=== PATIENT | female | born 1940 | race Caucasian/White ===

== ENCOUNTER 2016-11-28 18:14 | Inpatient (IN) | payer MEDICARE, SELFPAY ==
[~2016-11-28] VITALS: Ht 157.5 cm; Wt 87.9 kg
--- NOTE | ~2016-11-28 | EEP ---
Initial Pacemaker Generator Implant Report Demographics Patient Name SU AHUJA Gender Female Patient Number [id number] Race Visit Number [id number] Ethnicity Corporate ID Room Number 302 Accession Number [id number] Height 157.48 cm Date of 1940 Weight 83.46 kg Age 76 year(s) BSA 1.84 m Referring Physician Usman Yi MD BMI 33.65 kg/m Implanting Physician Usman Yi MD Date of Study 11/29/2016 Assisting Physician Performing Physician Usman Yi MD The procedure was explained in detail to the patient. Risks, complications and alternative treatments were reviewed. Written consent was obtained. Medications reviewed with patient prior to procedure. Conclusions Implantable Device Summary Summary 1. Successful Dual Chamber Pacemaker implantation. Recommendations 1. Ekg and chest X-ray should be performed immediately. 2. A wound check should be performed in 5- 7 days. Complications No complications. Procedure Procedure Type Pacemaker:Initial Insertion (generator and leads), Dual Lead PM Insert A&V Leads Indications Fatigue and Tobacco use-current. Procedure Description The patient was brought to the electrophysiology laboratory in a fasting state. A baseline ECG was recorded. Surface ECG leads, intracardiac electrograms, blood pressure measurements, and pulse oximety signals were monitored. A grounding pad was placed on the back. A defibrillator was configured to deliver shocks via self-adhesive anterior posterior defibrillator pads. Conscious sedation was administered. The upper chest area was prepped with ChloraPrep. After a three minute dry time the patient was draped in a sterile fashion. 2 % Lidocaine and Bupivacaine was used in the infraclavicular area and an incision was made. Blunt dissection down to the area of the Pectoralis Fascia was performed. Subclavian access was obtained and guidewires were placed into the SVC. 2 % Lidocaine with Bupivacaine was used inferiorly to the incision. Blunt dissection anterior to the Pectoralis Fascia was used to form the pacemaker pocket. Over one wire, an intravenous sheath and dilator were placed in the superior vena cava under fluoroscopic vision. Through the sheath, the ventricular lead was then placed into the right ventricular apex under fluoroscopic vision and tested. The sheath was removed. The lead was sutured to the Pectoralis fascia using non-absorbable suture. Over the other wire, an intravenous sheath and dilator were placed in to the superior vena cava under fluoroscopic vision. Through the sheath, the atrial lead was then placed in the right atrium under fluoroscopic vision and tested. The sheath was removed. The lead was sutured to the Pectoralis Fascia using non-absorbable sutures. The leads were then connected to the pulse generator and screwed tight. The pocket was irrigated with Normal Saline. The lead(s) and pulse generator were then placed into the pacemaker pocket. The incision was then closed. It was closed using 3-0 Vicryl for the deep and intermediate layer and 4-0 Vicryl for the subcuticular layer. A sterile dressing was applied. The patient tolerated the procedure well and was returned to the nursing unit in stable condition. Devices and Leads Leads + + +--------+ +------+ +---------+ !Identification!Action !Location!Lead name !Serial!Implant !Comments ! ! ! ! ! !# !date ! ! + + +--------+ +------+ +---------+ !New implant !Implanted !RV !PACER LEAD ![id number]!11/29/2016! ! ! ! !septum !INGEVITY ! ! ! ! ! ! ! !MRI 59 CM ! ! ! ! + + +--------+ +------+ +---------+ !New implant !Implanted !RA !PACER LEAD ![id number]!11/29/2016! ! ! ! !septal !INGEVITY ! ! ! ! ! ! ! !MRI 52 CM ! ! ! ! + + +--------+ +------+ +---------+ Leads Measured and Programmed Data +-------+---------+ +---------+ +---------+ + +------ -+ !Lead !Sensing Amplitude !Threshold (V) !Pulse Width (ms) !Impendence!Current! ! !(mV) ! ! !(Ohms) !(mA) ! +-------+---------+ +---------+ +---------+ + +------ -+ ! !Measured !Programmed !Measured !Programmed !Measured !Programmed ! ! ! +-------+---------+ +---------+ +---------+ + +------ -+ !RV ! !2.5 !0.4 !3.5 !0.5 !0.5 !1040 !0.4 ! !septum ! ! ! ! ! ! ! ! ! +-------+---------+ +---------+ +---------+ + +------ -+ !RA !1 !0.25 !1 !3.5 !0.5 !0.5 !599 !1.7 ! !septal ! ! ! ! ! ! ! ! ! +-------+---------+ +---------+ +---------+ + +------ -+ Device Programming Bradycardia Zone +-------+--------+--------+--------+ + +------+--------+ !Pacing !Mode !Lower !Upper !Paced AV !Sensed AV !PVARP !VRP (ms)! !Mode !Switch !Rate !Rate !Interval !Interval !(ms) ! ! ! ! !(ppm) !(ppm) !(ms) !(ms) ! ! ! +-------+--------+--------+--------+ + +------+--------+ !DDDR !On !60 !130 !210 !180 !320 !250 ! +-------+--------+--------+--------+ + +------+--------+ Medical History Allergies - Penicillin:. Admission Data Admission Date: 11/28/2016 Admission Time: 20:15 Insurance Payors:Medicare. Hospital Status:Inpatient. Procedure Data Procedure Date:11/29/2016Start:11:58 Fluoroscopy Time: 8:06 minutes.Fluoroscopy Dose: 337 mGy. Estimated blood loss:13 ml. Contrast Material - Isovue 370,10 ml. Procedure Medications Order and Administration + + +---------+--------+ !Time !Medication !Dosage !Route ! + + +---------+--------+ !11/29/2016 11:48 !Oxygen !2 l/min !NC ! + + +---------+--------+ 11/29/2016 11:55 !Versed !2 mg !I.V. ! + + +---------+--------+ !11/29/2016 11:55 !Fentanyl !50 mcg !I.V. ! + + +---------+--------+ !11/29/2016 11:56 !Sodium Chloride !40 ml !I.V. ! + + +---------+--------+ !11/29/2016 11:48 !Ancef !2 g !I.V. ! + + +---------+--------+ !11/29/2016 12:14 !Versed !1 mg !I.V. ! + + +---------+--------+ !11/29/2016 12:14 !Fentanyl !25 mcg !I.V. ! + + +---------+--------+ !11/29/2016 12:18 !Fentanyl !25 mcg !I.V. ! + + +---------+--------+ !11/29/2016 12:51 !Versed !1 mg !I.V. ! + + +---------+--------+ !11/29/2016 12:54 !Fentanyl !25 mcg !I.V. ! + + +---------+--------+ Discharge Data Discharge Date: 12/03/2016 Signatures
--- NOTE | ~2016-11-28 | ECH ---
Transthoracic Echocardiography Report (TTE) Demographics Patient Name LEIGHA BLUE Date of Study 11/29/2016 Patient Number [id number] Visit Number [id number] Date of 1940 Room Number 302 Accession Number [id number] Gender Female Age 76 year(s) Referring Usman Yi MD Cherry Sorter Lyla Orantes Physician RDCS Physician Interpreting Usman Yi MD Feltmaker And Weigher Physician Supervising Ordering Physician Usman Yi MD, MD/MLP Nurse Stress Uniform Force Captain Conclusions Summary Technically good exam. The estimated left ventricular ejection fraction is 60-65%. The left ventricle is moderately dilated . Mild concentric left ventricular hypertrophy. The left atrium is moderately dilated by LA volume index measurement. The interatrial septum appears aneurysmal. There is trivial aortic regurgitation by color Doppler. Mild-moderate mitral regurgitation by color Doppler. Mild tricuspid regurgitation by color Doppler. There is mild pulmonary hypertension. The pulmonary pressure (RVSP) is 39 mmHg. Procedure Type of Study TTE procedure:Echo Complete SF. Procedure Date Date: 11/29/2016 Start: 09:38 AM Technical Quality: Good visualization Indications:AV block complete and Near Syncope. Appropriate Use Criteria: 9 Height: 62 inches Weight: 184 pounds BSA: 1.84 m HR: 35 bpm BP: 143/73 mmHg Allergies - Penicillin. M-Mode/2D Measurements LV Diastolic Dimension: 5.94 cm LV Systolic Dimension: 4.07 cm LV Septum Diastolic: 0.96 cm LV PW Diastolic: 0.99 cm AO Root Dimension: 3.25 cm Cardiac Output: 3.31 l/min LA Dimension: 4.05 cm Cardiac Index: 1.8 l/min*m RV Diastolic Dimension: 3.85 cm LA volume index: 47 ml/m LVOT: 2.05 cm LVOT VTI: 28.69 cm RV Base: 3.4 cm LV Stroke volume: 94.65 ml RV Mid: 2.1 cm LV Stroke volume index: 51.44 ml/m TAPSE: 3.4 cm TDI-S': 20 cm/s Doppler Measurements AV Peak Velocity: 2 m/s MV Peak E-Wave: 1.58 m/s AV Peak Gradient: 16 mmHg AV Mean Gradient: 7.39 mmHg MV P1/2t: 58.4 msec LVOT Peak Velocity: 1.41 m/s AV Area (Continuity):2.51 cm MV Area (PHT): 3.77 cm TR Velocity:3.02 m/s PV Peak Velocity: 1.07 m/s TR Gradient:36.48 mmHg PV Peak Gradient: 4.57 mmHg Estimated RAP:3 mmHg Estimated PASP: 39.48 mmHg Estimated RVSP: 39 mmHg RA Area: 17.05 cm Findings Left Ventricle The left ventricle is moderately dilated . Mild concentric left ventricular hypertrophy. Diastolic function indeterminate due to patient's arrhythmia. Right Ventricle Normal right ventricle structure and function. Left Atrium The left atrium is moderately dilated by LA volume index measurement. The interatrial septum appears aneurysmal. Right Atrium Normal right atrial size. Mitral Valve Normal mitral valve structure and function. Mild-moderate mitral regurgitation by color Doppler. Aortic Valve Normal aortic valve structure and function. There is trivial aortic regurgitation by color Doppler. Tricuspid Valve Normal tricuspid valve structure and function. Mild tricuspid regurgitation by color Doppler. There is mild pulmonary hypertension. The pulmonary pressure (RVSP) is 39 mmHg. Pulmonic Valve Normal pulmonic valve structure and function. Mild pulmonic valve regurgitation by color Doppler. Pericardial Effusion No evidence of pericardial effusion. Miscellaneous Visualized portions of the aortic root and ascending aorta appear normal in size. Pleural Effusion No evidence of pleural effusion. Signature
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
[2016-12-04] MEDS ORDERED: APRESOLINE DPS100 MG PO (16:29)
[2016-12-04] MEDS ORDERED: CATAPRES-DPS0.1 MG PO (16:29)
[2016-12-04] MEDS ORDERED: CARVEDILOL25 MG PO (16:29)
[2016-12-04] MEDS ORDERED: ZESTRIL DPS40 MG PO (16:30)
[2016-12-04] MEDS ORDERED: NORVASC DPS10 MG PO (16:30)
[2016-12-04] MEDS ORDERED: SPIRONOLACT50 MG PO (16:30)
[2016-12-04] MEDS ORDERED: NICOTINE PATCH1 EAC1 TD (16:31)
[2016-12-04] MEDS ORDERED: ASPIRIN EC81 MG PO (16:31)
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
--- NOTE | 2017-01-04 14:57 | DS ---
ADMIT: 11/28/2016 RM/LOC: 302 [facility] MR#: [id number] [facility]#: [id number] [address] [facility] [address] [place], [place] [address] LEIGHA BLUE [address] [place] [address] General Discharge Summary SEX: F AGE: 76 : 1940 ADMISSION DATE: 11/28/2016 DISCHARGE DATE: 12/03/2016 FINAL DIAGNOSES: 1. Third-degree heart block. 2. Near syncope. 3. Acute delirium. 4. History of a stroke based on CT findings. 5. Hyponatremia. HOSPITAL COURSE: The patient admitted through the emergency room with near syncope and heart block. She did not have any history of coronary artery disease. She had reported not feeling well and being a little more fatigued in the past few days. Then, she had some mental status changes, and therefore, was brought into the emergency room. She did have an EKG, which showed third-degree heart block and was scheduled for a permanent pacemaker implantation. Her lab work was within normal limits. Medications were started for her hypertension. Her blood pressures continued to be greater than 200 systolic, and nitroglycerin drip was started along with her hydralazine and Norvasc, Ativan was also added. She had an echocardiogram, which showed a preserved ejection fraction, and therefore underwent a dual- chamber permanent pacemaker implantation on 11/29/2016, without any immediate complications. She remained on a nitroglycerin drip for blood pressure. Pace catheter was placed, and she was getting IV Lasix and also DuoNebs. She continued to have agitation and anxiety post-implant. Her blood pressure was elevated 180s over 90s. Nitroglycerin drip was at 55 mcg, Haldol was given, and she had a CT of the head ordered, Ativan was stopped, blood glucose was checked, and [facility] was consulted for primary care due to her confusion and medical management. Thiamine was given and the lab work was checked including a urine sodium, urine creatinine, and cortisol level. Fluid was given because of her acute delirium. Her CT did note an old stroke. The next day, metoprolol was added for her blood pressure and nitroglycerin drip was weaned. PT was ordered to evaluate and treat. She was feeling better that day. IV fluid resuscitation was continued. Sodium was improving. She was noted to be hyponatremic prior to that, it was thought this was all dehydration hypovolemia. The next day, her device check looked okay, she did have 6 seconds of atrial tachycardia. On 12/01/2016, her Lopressor was increased, Aldactone was added, her fluids were stopped, her sodium was better at 132, her delirium was clearing, 4-5 medication adjustments were made for her blood pressure. Her blood pressure was better, but was still elevated in systolics. Her hydralazine was increased also, along with her ASHLEY inhibitor, her amlodipine, and her beta-edie was changed. Clonidine was added. On 12/03/2016, she was felt stable for discharge. She did have resistant hypertension better than before. She had multiple medication changes over the last few days, and therefore, was decided to see the effect over the next couple weeks of these medication changes. Smoking cessation was discussed. She was scheduled to follow up with MOIRA Zuluaga, or Dr. Mary in 4 to 5 days for device check and blood pressure check. She is scheduled to follow up with Dr. Chavez in 6 weeks. ADMIT: 11/28/2016 RM/LOC: 302 [facility] MR#: [id number] [address] [place] [id number] LEIGHA BLUE MOCKING [place]IRNA [place] [address] General Discharge Summary SEX: F AGE: 76 : 1940 DISCHARGE MEDICATIONS: Include: 1. Hydralazine 100 mg p.o. daily. 2. Catapres 0.1 mg p.o. daily. 3. Coreg 25 mg p.o. b.i.d. 4. Norvasc 10 mg p.o. daily. 5. Spironolactone 50 mg p.o. daily. 6. Zestril 40 mg p.o. daily. 7. Habitrol 21 mg patch daily. 8. Aspirin 81 mg daily. She is scheduled for a BMP in 1 week. VITAL SIGNS ON DISCHARGE: Blood pressure of 128/52, O2 saturation of 93%, pulse of 63, respirations of 17, temp of 96.5. DISCHARGE DISPOSITION: To home. DISCHARGE CONDITION: Stable. PARISH Zuluaga / Oralia Mary MD / merrill JOB #: [id number] CC: Oralia Mary MD, Attending Physician Oralia Mary MD, Family Physician
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
[2017-01-13] MEDS ORDERED: MULTIPLE VITAM1 EAC1 PO (09:41)
[2017-01-13] MEDS ORDERED: GARLIC1 EAC1 PO (09:42)
[2017-01-13] MEDS ORDERED: [UNRECOGNIZED DRUG - OTHER] PO (09:42)
[2017-01-13] MEDS ORDERED: CO Q-1010 MG PO (09:42)
[2017-01-13] MEDS ORDERED: RESVERATROL50 MG PO (09:43)
== END 2016-12-03 11:00 | disposition home or self-care (01) | DRG 243 ==
LOC: ER 18:14 → 3ICU 20:15
PROVIDERS: ADMIT Internal Medicine
DX: I44.2 Atrioventricular block, complete (principal); E87.1 Hypo-osmolality and hyponatremia; E86.0 Dehydration; I10 Essential (primary) hypertension; I47.1 Supraventricular tachycardia; F17.210 Nicotine dependence, cigarettes, uncomplicated; R41.0 Disorientation, unspecified; S92.901D Unspecified fracture of right foot, subsequent encounter for fracture with routine healing; Z86.73 Personal history of transient ischemic attack (TIA), and cerebral infarction without residual deficits; Z82.49 Family history of ischemic heart disease and other diseases of the circulatory system

== ENCOUNTER → 2017-01-07 | Outpatient (CLI) | payer MEDICARE ==
[~2017-01-07] MED LIST: APRESOLINE DPS100 MG PO; ASPIRIN EC81 MG PO; CARVEDILOL25 MG PO; CATAPRES-DPS0.1 MG PO; CO Q-1010 MG PO; GARLIC1 EAC1 PO; MULTIPLE VITAM1 EAC1 PO; NICOTINE PATCH1 EAC1 TD; NORVASC DPS10 MG PO; RESVERATROL50 MG PO; SPIRONOLACT50 MG PO; ZESTRIL DPS40 MG PO; [UNRECOGNIZED DRUG - OTHER] PO
--- NOTE | ~2017-01-07 | EEP ---
Pacemaker Implant Report Demographics Patient Name SU AHUJA Gender Female Patient Number [id number] Race Visit Number [id number] Ethnicity Corporate ID Room Number Accession Number [id number] Height 157.48 cm Date of 1940 Weight 77 kg Age 76 year(s) BSA 1.78 m Referring Physician Karri PIZARRO BMI 31.05 kg/m Implanting Physician Usman Yi MD Date of Study 01/11/2017 Assisting Physician Performing Physician Usman Yi MD The procedure was explained in detail to the patient. Risks, complications and alternative treatments were reviewed. Written consent was obtained. Medications reviewed with patient prior to procedure. Conclusions Complications No complications. Procedure Procedure Type Pacemaker:Miscellaneous Pacemaker Leads Only:Insertion, Insert New Lead; Dual (2 Electrodes) , Repositioning/Removal, Removal of dual chamber leads Indications Pacer/lead mechanical complication. Procedure Description The patient was brought to the catheterization laboratory in a fasting state. A baseline ECG was recorded. Surface ECG leads, intracardiac electrograms, blood pressure measurements, and pulse oximetry signals were monitored. A grounding pad was placed on the back. A defibrillator was configured to deliver shocks via self-adhesive anterior posterior defibrillator pads. Conscious sedation was administered. The upper chest area was prepped with ChloraPrep. After a three minute dry time the patient was draped in a sterile fashion. 2 % Lidocaine with Epi was used in the infraclavicular area. The existing incision was then reopened. Blunt dissection down to the area of the Pectoralis Fascia was performed. The chronic lead(s) was disconnected from the pulse generator. The lead(s) were then repositioned and thresholds were obtained. The lead was sutured to the Pectoralis fascia using non-absorbable suture. The pocket was irrigated with Normal Saline. The lead(s) and pulse generator were then placed into the device pocket. The incision was then closed. It was closed using 2-0 Vicryl for the deep and intermediate layer and 4-0 Vicryl for the subcuticular layer. A sterile dressing was applied. The patient tolerated the procedure well and was returned to the nursing unit in stable condition. Devices and Leads Leads + + +--------+ +------+ +---------+ !Identification!Action !Location!Lead name !Serial!Implant !Comments ! ! ! ! ! !# !date ! ! + + +--------+ +------+ +---------+ !Old implant ! !RV !PACER LEAD ![id number]!11/29/2016! ! ! ! !septum !INGEVITY ! ! ! ! ! ! ! !MRI 59 CM ! ! ! ! + + +--------+ +------+ +---------+ !Old implant ! !RA !PACER LEAD ![id number]!11/29/2016! ! ! ! !septal !INGEVITY ! ! ! ! ! ! ! !MRI 52 CM ! ! ! ! + + +--------+ +------+ +---------+ !New implant !Implanted !RV !PACER LEAD ![id number]!01/11/2017! ! ! ! !septum !INGEVITY ! ! ! ! ! ! ! !MRI 59 CM ! ! ! ! + + +--------+ +------+ +---------+ Leads Measured and Programmed Data +-------+---------+ +---------+ +---------+ + +------ -+ !Lead !Sensing Amplitude !Threshold (V) !Pulse Width (ms) !Impendence!Current! ! !(mV) ! ! !(Ohms) !(mA) ! +-------+---------+ +---------+ +---------+ + +------ -+ ! !Measured !Programmed !Measured !Programmed !Measured !Programmed ! ! ! +-------+---------+ +---------+ +---------+ + +------ -+ !RV ! !2.5 !0.5 !3.5 !0.5 !0.5 !933 !0.6 ! !septum ! ! ! ! ! ! ! ! ! +-------+---------+ +---------+ +---------+ + +------ -+ Medical History Allergies - Penicillin:. - Penicillin:. Admission Data Admission Date: 01/07/2017 Admission Time: 11:18 Insurance Payors:Medicare. Hospital Status:Outpatient. Procedure Data Procedure Date:01/11/2017Start:12:37 Fluoroscopy Time: 5:18 minutes.Fluoroscopy Dose: 123 mGy. Estimated blood loss:10 ml. Contrast Material - Isovue 370,0 ml. Procedure Medications Order and Administration + + +---------+--------+ !Time !Medication !Dosage !Route ! + + +---------+--------+ 01/11/2017 12:57 !Ancef !2 g !I.V. ! + + +---------+--------01/11/2017 13:02 !Versed !2 mg !I.V. ! + + +---------+--------01/11/2017 13:03 !Fentanyl !50 mcg !I.V. ! + + +---------+--------+ !01/11/2017 13:03 !Sodium Chloride !30 ml !I.V. ! + + +---------+--------+ !01/11/2017 13:11 !Oxygen !2 l/min !NC ! + + +---------+--------+ !01/11/2017 13:13 !Versed !1 mg !I.V. ! + + +---------+--------+ !01/11/2017 13:13 !Fentanyl !25 mcg !I.V. ! + + +---------+--------+ !01/11/2017 13:20 !Versed !1 mg !I.V. ! + + +---------+--------+ !01/11/2017 13:20 !Fentanyl !25 mcg !I.V. ! + + +---------+--------+ !01/11/2017 13:24 !Oxygen !4 l/min !NC ! + + +---------+--------+ !01/11/2017 13:37 !Versed !1 mg !I.V. ! + + +---------+--------+ !01/11/2017 13:37 !Fentanyl !50 mcg !I.V. ! + + +---------+--------+ !01/11/2017 13:58 !Versed !1 mg !I.V. ! + + +---------+--------+ !01/11/2017 13:58 !Fentanyl !25 mcg !I.V. ! + + +---------+--------+ !01/11/2017 14:10 !Fentanyl !25 mcg !I.V. ! + + +---------+--------+ Approach - Incision site: Left infraclavicular.The subclavian vein (stick) was cannulated. Entry Locations - Percutaneous access was performed through the left subclavian vein. A 6 Fr sheath was inserted. Signatures
== END | disposition home or self-care (01) ==
LOC: RAD.S 11:18
DX: R06.02 Shortness of breath (principal); R55 Syncope and collapse

== ENCOUNTER 2017-01-11 10:56 | Observation (INO) | payer MEDICARE, SELFPAY ==
[~2017-01-11] VITALS: Ht 157.5 cm; Wt 76.5 kg
[~2017-01-11 10:56] MED LIST changes: -CO Q-1010 MG PO; -GARLIC1 EAC1 PO; -MULTIPLE VITAM1 EAC1 PO; -RESVERATROL50 MG PO; -[UNRECOGNIZED DRUG - OTHER] PO
[2017-01-13] MEDS ORDERED: MULTIPLE VITAM1 EAC1 PO (09:41)
[2017-01-13] MEDS ORDERED: GARLIC1 EAC1 PO (09:42)
[2017-01-13] MEDS ORDERED: CO Q-1010 MG PO (09:42)
[2017-01-13] MEDS ORDERED: [UNRECOGNIZED DRUG - OTHER] PO (09:42)
[2017-01-13] MEDS ORDERED: RESVERATROL50 MG PO (09:43)
--- NOTE | 2017-01-15 11:56 | HP ---
ADMIT: 01/11/2017 RM/LOC: [address] [facility] MR#: [id number] [address] [place] [id number] [place] [address] History and Physical SEX: F AGE: 76 : 1940 DATE OF SERVICE: CHIEF COMPLAINT: Near syncope. HISTORY OF PRESENT ILLNESS: Ms. Blue is a 76-year-old white female with a history of third-degree block and I implanted a permanent device in her in November 2016. She presented with some recurrent near syncope. Lead was found to be micro dislodged. Since the adjustment in December, she has not been experiencing any near syncope. She is denying any chest pain, pressure, tightness, fevers, chills, cough, or cold symptoms. She stopped her blood pressure medications all on her own and has noted that she is feeling much better. CURRENT MEDICATIONS: None. ALLERGIES: PENICILLIN. PAST MEDICAL HISTORY: Includes a foot fracture, third degree block, and hypertension. SOCIAL HISTORY: She is a former smoker. Senior Tax Manager. Familial history is reviewed and unchanged from November 2016. REVIEW OF SYSTEMS: A full 12-point review of systems was obtained and deemed to be negative except the pertinently dictated positive in HPI. PHYSICAL EXAMINATION: VITAL SIGNS: Her blood pressure is 170/90 with a pulse rate in the 70s. She is afebrile. GENERAL: She is a pleasant well-nourished well-developed white female, in no acute distress. Alert and oriented x3. NECK: Shows brisk carotid upstrokes. No JVD or bruit. CHEST: Clear. HEART: Regular. ADMIT: 01/11/2017 RM/LOC: [address] [facility] MR#: [id number] [address] [place], [place] [id number] [address] [place] [address] History and Physical SEX: F AGE: 76 : 1940 ABDOMEN: Soft. EXTREMITIES: Showed no cyanosis, clubbing, edema. MUSCULOSKELETAL AND NEUROLOGIC: Normal. SKIN: Shows a clear, dry, and intact with a previous pacemaker incision scar which is stable. ASSESSMENT AND PLAN: 1. Micro dislodgement of permanent pacemaker with ventricular lead. 2. Third-degree heart block. 3. Hypertension. Risks, benefits, and alternatives to revision of the lead were discussed and the patient agrees to proceed. Oralia Mary MD/ merrill JOB #: [id number] CC: Kendrick Mary, Attending Physician NO FAMILY PHYSICIAN, Family Physician
== END 2017-01-12 10:50 | disposition home or self-care (01) ==
LOC: SSS 10:56 → 4PCU 14:01
PROVIDERS: ADMIT Internal Medicine
PROC: 02PA3MZ Removal of Cardiac Lead from Heart, Percutaneous Approach (ICD-10-PCS; principal; 2017-01-11)
PROC: 02HK3JZ Insertion of Pacemaker Lead into Right Ventricle, Percutaneous Approach (ICD-10-PCS; principal; 2017-01-11)
DX: T82.120A Displacement of cardiac electrode, initial encounter (principal); I44.2 Atrioventricular block, complete; I10 Essential (primary) hypertension; Z87.891 Personal history of nicotine dependence; Z88.0 Allergy status to penicillin; Z79.899 Other long term (current) drug therapy